=== PATIENT | male | born 1990 | race Caucasian/White ===

== ENCOUNTER 2016-08-14 22:25 | Emergency (ER) | payer OTHER ==
[2016-08-14 22:30] VITALS: BP 130/74; PULSE 103; RESP 20; TEMP 97.9
--- NOTE | 2016-08-14 22:42 | ED ---
Skin/Abscess/FB HPI - General Chief complaint: Skin/Abscess/Foreign Body Stated complaint: rash/lower back Time Seen by Provider: 08/14/16 22:30 Source: patient, family, RN notes reviewed Mode of arrival: ambulatory Limitations: no limitations - History of Present Illness Initial comments: Patient is a 25-year-old male presents to the emergency room for evaluation a rash on back. Patient states he was wrestling with his 6-year-old cousin a few days ago. Patient states his cousin was diagnosed with a fungal rash recently. Patient states he woke up and noticed a small scaly patch in his right lower back. Patient states the areas is very itchy. Patient states he thinks he has the same fungal infection. Patient denies recent detergents, body washes, soaps , shampoos, lotions. Patient is fevers or chills. Patient has history changes in medications. - Related Data Previous Rx's Medication Instructions Recorded Butenafine HCl [Lotrimin Ultra] 1 applic TOPICAL DAILY 14 Days 08/14/16 Allergies Allergy/AdvReac Type Severity Reaction Status Date / Time No Known Allergies Allergy Verified 08/14/16 22:29 Review of Systems ROS Statement: Those systems with pertinent positive or pertinent negative responses have been documented in the HPI. ROS Other: All systems not noted in ROS Statement are negative. Past Medical History Past Medical History: No Reported History History of Any Multi-Drug Resistant Organisms: None Reported Past Surgical History: No Surgical Hx Reported Past Psychological History: ADD/ADHD Smoking Status: Current every day smoker Past Alcohol Use History: Occasional Past Drug Use History: Marijuana General Exam - General Exam Comments Initial Comments: Sitting in exam room, no distress. Limitations: no limitations General appearance: alert, in no apparent distress Head exam: Present: atraumatic, normocephalic, normal inspection Eye exam: Present: normal appearance ENT exam: Present: normal exam Neck exam: Present: normal inspection Respiratory exam: Present: normal lung sounds bilaterally. Absent: respiratory distress Cardiovascular Exam: Present: regular rate, normal rhythm, normal heart sounds Extremities exam: Present: normal inspection Back exam: Present: normal inspection Neurological exam: Present: alert, oriented X3, CN II-XII intact, normal gait Psychiatric exam: Present: normal affect, normal mood Skin exam: Present: warm, dry, other ([place] scaly patch a little larger than the size of a quarter on the right lower portion of back. No surrounding erythema. No other lesions noted.) Course Vital Signs 08/14/16 22:27 Temperature 97.9 F Pulse Rate 103 H Respiratory 20 Rate Blood Pressure 130/74 O2 Sat by Pulse 98 Oximetry Medical Decision Making - Medical Decision Making Patient is 25-year-old male presents to the emergency room for evaluation of rash on back. Patient does have a lesion that is concerning for tinia corporis. Will place patient on antifungal cream. Advised patient to follow- up with primary care provider or provider relations manager for reevaluation of the area. Patient states he understands everything was discussed with him. Return parameters discussed. Disposition Clinical Impression: Tinea corporis Disposition: HOME SELF-CARE Condition: Good Instructions: Tinea Corporis (ED) Additional Instructions: Apply cream to affected area as directed. Please follow up with primary care provider or provider relations manager 24-48 hours for reevaluation. If any new symptom arises or symptoms worsen, return to ER as soon as possible. Prescriptions: Butenafine HCl [Lotrimin Ultra] 1 applic TOPICAL DAILY 14 Days Referrals: None,Stated [Primary Care Provider] - 1-2 days Time of Disposition: 22:39
== END 2016-08-14 22:50 | disposition home or self-care (01) ==
LOC: EC 22:25
DX: B35.4 Tinea corporis (principal); F17.200 Nicotine dependence, unspecified, uncomplicated
CPT/HCPCS: 99282